=== PATIENT | female | born 1980 | race Caucasian/White ===

== ENCOUNTER → 2017-04-27 | Outpatient (CLI) | payer BC | LOC: GMATM 13:27 | PROVIDERS: ATTEND Nurse Practitioner Family | DX: R53.1 Weakness (principal); R53.82 Chronic fatigue, unspecified ==

== ENCOUNTER → 2017-11-16 | Outpatient (CLI) | payer BC ==
--- NOTE | 2017-11-16 15:53 | CT ---
EXAM DESCRIPTION: Abdomen/Pelvis w/wo Contrast: Computed Tomography. CLINICAL HISTORY: INCONTINENCE COMPARISON: None. TECHNIQUE: Spiral-axial scans at 5 x 5 mm intervals through the abdomen and pelvis before and after standard dose nonionic IV contrast. Images postcontrast were delayed 2 minutes after contrast injection. No oral contrast. Coronal 2.0 mm reconstructions. No delayed images. No adverse reactions. Total Exam DLP 780.61 mGy - cm. This exam was performed according to our departmental CT dose-optimization program which includes automated exposure control, adjustment of the mA and/or kV according to patient size and/or use of iterative reconstruction technique; to reduce radiation dose to as low as reasonably achievable (ALARA). FINDINGS: Lung bases and pleura: Negative. Liver, Stomach, Spleen, Adrenal Glands: Unremarkable. Pancreas, Gallbladder, Ducts: Negative. Kidneys and Ureters: 3 radiodense stones in the upper right renal collecting system measuring 2.3, 3.3, and 1.8 mm in diameter. In the right renal collecting system possibly 6 radiodense stones with the largest measuring 2.4 mm in the upper collecting system. No hydronephrosis bilaterally. No radiodense stones in the proximal ureters no ureteral dilation or periureteral edema. Mesentery: Negative. Aorta: Unremarkable. Small Bowel: Ileum with intermittent distention by fluid with no air-fluid levels. Terminal Ileum/Cecum: TI distended by fluid; distended segment is approximately 6 cm long. Ileocecal valve contains fluid. Cecum not distended. Normal caliber of the appendix. No surrounding mesenteric edema or fascial thickening. Colon: Diffuse fecal material in the colon, particularly ascending colon to descending colon. Marked redundancy of the sigmoid colon. No complications Pelvic Organs: No contrast material in the urinary bladder. Uterus and ovaries not well seen. Minimal fluid in the cul-de-sac. Spine and Bony Pelvis: Minimal lumbar levoscoliosis. Questionable narrowing of the superior medial left hip joint. Abdominal Wall/Back Soft Tissues: Unremarkable. IMPRESSION: 1. Urinary bladder contained no IV contrast and not well distended by urine. No radiodense stones. No mass effect on the urinary bladder. The cul-de-sac is unremarkable except for minimal fluid. 2. Multiple stones in the bilateral collecting systems with no obstruction or hydronephrosis. Bilateral stones in the upper collecting system are more risk to pass into the ureters. No radiodense stones in the ureters. 3. Increased fluid in the ileum with minimal intermittent distention. This could be due to a nonspecific enteritis. Colonic constipation with markedly redundant sigmoid colon but no complications. Electronically signed by: Brent Mg MD 11/16/2017 3:52 PM CDT
== END ==
LOC: CT 07:46
PROVIDERS: ATTEND Urology
DX: R39.81 Functional urinary incontinence (principal); N20.0 Calculus of kidney

== ENCOUNTER → 2018-05-20 | Outpatient (CLI) | payer BC ==
--- NOTE | 2018-05-20 15:26 | MAM ---
EXAM DESCRIPTION: 3D Screening BILATERAL : Digital Mammography. CLINICAL HISTORY: 37 years Female SCREENING . No complaints or personal history of breast cancer. Remote childbirth. Postmenopausal 2 years. No HRT Family history of breast cancer.. Lifetime risk of developing breast cancer (Tyrer-Cuzick model)(%): 6.8. COMPARISON: Bilateral screening 2-D digital mammography 05/06/2013.. No prior reports available. TECHNIQUE: Bilateral CC and MLO projection full-field images, with Horace Implant Displacement digital tomosynthesis mammographic technique. Bilateral 2-D digital full-field images, MLO and CC projections, non-displaced. No CAD Bilateral digital 2-D full-field MLO images, displaced, no tomosynthesis. CAD not available for tomosynthesis or 2-D images. FINDINGS: The breast parenchymal density pattern is: Heterogeneously dense breast tissue, which may obscure small masses. No skin thickening or nipple retraction. Bilateral solitary microcalcifications. Bilateral axillary lymph nodes. Bilateral saline implants retro- muscular position. Focal asymmetry in the right breast at the 9:00 to 10:00 position near the posterior nipple line and also more laterally approximately 4 cm and 6 cm from the nipple. Not associated with microcalcifications. No new focal, stellate mass or density, focal asymmetry , and no suspicious microcalcifications left breast. IMPRESSION: BI-RADS CATEGORY: 0 - INCOMPLETE- Need additional imaging evaluation. FOLLOW-UP: Recall for additional imaging: Orthogonal tomosynthesis images of the right breast along with targeted right breast ultrasound of the region of interest, lateral right breast.. Written communication concerning the IMPRESSION and Follow-up, will be mailed to the patient and referring health care provider. Electronically signed by: Brent Mg MD 05/20/2018 3:23 PM CDT
== END ==
LOC: MAMMO 14:25
PROVIDERS: ATTEND Surgery
DX: Z12.31 Encounter for screening mammogram for malignant neoplasm of breast (principal)

== ENCOUNTER → 2018-05-22 | Outpatient (CLI) | payer BC ==
--- NOTE | 2018-05-23 21:09 | US ---
EXAM DESCRIPTION: Breast,Right: Ultrasound CLINICAL HISTORY: 37 yearsFemaleINCONCLUSIVE IMAGES ON MAMMO. Focal asymmetry in the right breast. Patient has bilateral breast implants. Planned revision of the implants this week. COMPARISON: Bilateral screening digital breast tomosynthesis 05/20/2018. Diagnostic right breast tomosynthesis included with this visit. TECHNIQUE: Transcutaneous scanning of the right breast utilizing leyva-scale and Doppler modes. Scanning performed by the instructor correspondence [employer] ; observation by Dr. Mg. FINDINGS: Scanning of the right breast from the 8:00 sector to the 11:00 sector. Mostly fibroglandular and fibrocystic elements with scattered fatty echotexture. Capsule of the implant is intact where seen. No dominant solid mass or distinct cyst. No parenchymal edema or large calcifications. No overlying skin changes. IMPRESSION: 1. Bi-Rads Category 2: Benign. 2. Please refer to diagnostic right breast tomosynthesis examination and report on this visit. The FINDINGS and the FOLLOW-UP plan were reviewed in person with the patient after the examination. Written communication explaining the IMPRESSION and FOLLOW-UP will be mailed to the patient and referring care provider. Electronically signed by: Brent Mg MD 05/23/2018 9:06 PM CDT
--- NOTE | 2018-05-24 09:46 | MAM ---
EXAM DESCRIPTION: Diagnostic Mammo,Right: Digital Mammography CLINICAL HISTORY: 37 yearsFemaleINCONCLUSIVE IMAGES ON MAMMO focal asymmetry right breast. Patient has retromuscular implant.Planned implant revision this week. COMPARISON: Bilateral screening digital breast tomosynthesis 05/20/2018. No prior reports available. Targeted right breast ultrasound included with this examination. TECHNIQUE: Right breast LM Horace implant displacement projection full-field images, digital mammographic tomosynthesis technique. Full-field 2-D LM nondisplaced images digital spot compression centrally and lateral right breast LM and CC projections CAD not available. FINDINGS: The breast parenchymal density pattern is: Heterogeneously dense breast tissue, which may obscure small masses. No skin thickening or nipple retraction focal asymmetry less dense and less focal on the spot compression images. Included implant margins are unremarkable. Small calcifications. Ultrasound: Scanning of the right breast from the 8:00 sector to the 11:00 sector. Mostly fibroglandular and fibrocystic elements with scattered fatty echotexture. Capsule of the implant is intact where seen. No dominant solid mass or distinct cyst. No parenchymal edema or large calcifications. No overlying skin changes. IMPRESSION: Benign exam. BIRAD CATEGORY: 2 BENIGN FINDINGS. RECOMMENDATIONS: FOLLOW UP: Return to routine digital bilateral mammographic screening, one year interval from date Written communication explaining the IMPRESSION and follow-up, will be mailed to the patient and referring health care provider. The FINDINGS and the FOLLOW-UP plan were reviewed in person with the patient after the examination. According to the [employer], yearly mammograms are recommended starting at age 40 and continuing as long as a woman is in good health. Any breast change noted on a breast self-exam should be reported promptly to the patient's healthcare provider. Breast MRI is recommended for women with an approximately 20-25% or greater lifetime risk of breast cancer, including women with a strong family history of breast or ovarian cancer and women who have been treated for Hodgkin's disease. A negative mammographic report should not delay tissue diagnosis in patients with significant clinical history or physical findings. Extremely dense breast tissue limits the sensitivity of digital mammography. Electronically signed by: Brent Mg MD 05/24/2018 9:43 AM CDT
== END ==
LOC: MAMMO 11:01
PROVIDERS: ATTEND Surgery
DX: R92.8 Other abnormal and inconclusive findings on diagnostic imaging of breast (principal)

== ENCOUNTER → 2019-01-17 | Outpatient (CLI) | payer BC | LOC: GMAM 10:17 | PROVIDERS: ATTEND Family Medicine | DX: E34.8 Other specified endocrine disorders (principal) ==